=== PATIENT | male | born 1975 | race Caucasian/White ===

== ENCOUNTER 2017-08-04 12:16 | Outpatient (CLI) | payer OTHER ==
--- NOTE | 2017-08-04 13:52 | RAD ---
TWO VIEW CHEST: HISTORY: Hemoptysis and bronchitis. FINDINGS: The lungs appear clear of infiltrates. The heart and mediastinum appear normal. Vascular markings a re normal. Osseous structures are unremarkable. IMPRESSION: No acute finding. POS: [facility]
== END 2017-08-04 12:17 | disposition home or self-care (01) ==
LOC: NAV RAD 12:16
PROVIDERS: ATTEND Student in an Organized Health Care Education/Training Program
DX: J20.9 Acute bronchitis, unspecified (principal); R04.2 Hemoptysis
CPT/HCPCS: 71046